=== PATIENT | female | born 1935 | race Two or more races ===

== ENCOUNTER 2021-05-07 18:48 | Inpatient (IN) | payer OTHER ==
[~2021-05-07] VITALS: Ht 157.5 cm; Wt 52.6 kg
[~2021-05-07 18:48] MED LIST: ALPR0.5T8 PO; BRIM5DRO2 EACHEYE; LEVO50TA8 PO; MELO-107 PO; TRAV2.5D2 EACHEYE
--- NOTE | 2021-05-07 19:00 | NUR ---
TO ER BED 1, C/O HEAD AND CHEST PRESSURE SINCE 163 TODAY, DENIES CHEST PAIN OR SOB, BREATHING EVEN AND NON LABORED, CONNECTED TO MONITOR, AWAITING MD GUZMAN
--- NOTE | 2021-05-07 19:22 | NUR ---
SALINE LOCK ESTABLISHED AND BLOOD DRAWN
--- NOTE | 2021-05-07 19:23 | NUR ---
COVID SWAB DONE AND SENT TO LAB
--- NOTE | 2021-05-07 20:11 | NUR ---
YUDELKA DAUGHTER [phone] AND ROSA SON [phone] ASKED FOR UPDATES WHENEVER
[2021-05-07 20:46] LABS: BASOPHILS % (AUTO) 0.4 % (0.0-2.0); EOSINOPHILS % (AUTO) 1.7 % (0.0-6.0); HEMATOCRIT 34 % (33-45); HEMOGLOBIN 11.3 g/dL (11.5-14.8); LYMPHOCYTES # (AUTO) 2.4 K/uL (0.8-4.8); LYMPHOCYTES % (AUTO) 44.1 % (20.0-44.0); MEAN CORPUSCULAR HGB CONC 33 g/dl (31.0-36.0); MEAN CORPUSCULAR VOLUME 90 fL (82-100); MONOCYTES # (AUTO) 0.4 K/uL (0.1-1.30); MONOCYTES % (AUTO) 7.1 % (2.0-12.0); NEUTROPHILS # (AUTO) 2.5 K/uL (1.8-8.9); NEUTROPHILS % (AUTO) 46.7 % (43.0-81.0); PLATELET COUNT (AUTO) 155 K/uL (150-450); RED BLOOD CELL COUNT(AUTO) 3.79 MIL/uL (4.0-5.2); WHITE BLOOD COUNT (AUTO) 5.3 K/uL (4.3-11.0)
[2021-05-07 21:04] LABS: CALCIUM, SERUM 8.8 mg/dL (8.5-10.1); CARBON DIOXIDE 30 mmol/L (21-32); CHLORIDE 97 mmol/L (98-107); CREATININE 0.8 mg/dL (0.6-1.3); GLUCOSE 92 mg/dL (74-106); SODIUM SERUM 133 mmol/L (136-145); UREA NITROGEN, BLOOD 22 mg/dL (7-18)
[2021-05-07] MEDS ORDERED: IOHEXOL-350 100 ML VIAL IV ONE (21:22)
[2021-05-07] MEDS ORDERED: CT SWABBABLE VALVE TRANS SET 1 EA INFUS.SET MC ONE (21:22)
[2021-05-07] MEDS ORDERED: IV NS 0.9% 250 ML IV ONE (21:22)
[2021-05-07] MEDS ORDERED: HEPARIN INFUSION/D5W 500 ML IV ONE ×2 (21:58→22:00)
--- NOTE | 2021-05-07 22:09 | NUR ---
SPOKE WITH JACINTO SAINI PUSH BENCH OPERATOR HELPER FOR CLINICALS. WILL CALL BACK FOR PEER TO PEER
--- NOTE | 2021-05-07 22:41 | NUR ---
PT TAKEN TO CT VIA LIBRADO
--- NOTE | 2021-05-07 22:45 | NUR ---
HEPARIN INFUSION INITIATED VIA 18G LAC AT 810 UNITS/HR PER PROTOCOL. NO BOLUS ADMINSTERED PER MD ORDER. PT/PTT/INR WITHIN NORMAL LIMITS WITH NO S/S OF BLEEDING.
[2021-05-08] MEDS ORDERED: AMLO2.5T4 PO (00:22)
[2021-05-08] MEDS ORDERED: MAGNESIUM HYDROXIDE 30 ML UDC PO PRN (00:30)
[2021-05-08] MEDS ORDERED: ENOXAPARIN SODIUM 30 MG/0.3 ML DISP.SYRIN SQ SCH (00:30)
[2021-05-08] MEDS ORDERED: MAG HYDROX/AL HYDROX/SIMETH 30 ML UDC PO PRN (00:30)
[2021-05-08] MEDS ORDERED: Z GUARD REMEDY 4 OZ OINT TP PRN (00:30)
[2021-05-08] MEDS ORDERED: HYDROCODONE/APAP 5/325MG TABLET PO PRN (00:30)
[2021-05-08] MEDS ORDERED: MORPHINE SULFATE INJ 2 MG/ML DISP.SYRIN IV PRN (00:30)
[2021-05-08] MEDS ORDERED: TEMAZEPAM 15 MG CAPSULE PO PRN (00:30)
[2021-05-08] MEDS ORDERED: ONDANSETRON HCL/PF 4 MG/2 ML VIAL IVP PRN (00:30)
[2021-05-08] MEDS ORDERED: NITROGLYCERIN 0.4 MG/TAB BOTTLE SL PRN (00:30)
[2021-05-08] MEDS ORDERED: ACETAMINOPHEN 325 MG TABLET PO PRN (00:30)
--- NOTE | 2021-05-08 02:00 | NUR ---
0200 SPOKE WITH SHER SOTO TO CLARIFY HEPARIN DRIP ORDER, PER HIM DC HEPARIN DRIP, START PATIENT ON LOVENOX 1MG/KG SQ EVERY 12 HOURS, AND DC PREVIOUS LOVENOX ORDER . ORDERS NOTED.
--- NOTE | 2021-05-08 02:07 | NUR ---
CALLED FOR REPORT NURSE NOT AVAILABLE AND WILL CALL BACK
--- NOTE | 2021-05-08 02:15 | NUR ---
0216 PHARMACIST FROM [facility] CALLED AND VERIFIED ORDERS, INFORMED HER THAT SHER SOTO ORDERED TO DC HEPARIN DRIP AND TO CHANGE DOSAGE OF LOVENOX.
--- NOTE | 2021-05-08 02:39 | NUR ---
REPORT GIVEN TO CHERRY HUGHES
--- NOTE | 2021-05-08 02:40 | NUR ---
0240 REPORT RECEIVED FROM ELLEN FAGAN FOR TRANSFER OF CARE WITH QUESTIONS ANSWERED.
--- NOTE | 2021-05-08 02:52 | NUR ---
PT TRANSPORTED TO ROOM 103-T ON BOILERMAKER PER ACLS PROTOCOL WITHOUT INCIDENT. ALL V/S STABLE AT TIME OF TRANSFER.
[2021-05-08 03:00] VITALS: BP 124/65
[2021-05-08] MEDS ORDERED: ENOXAPARIN SODIUM 60 MG/0.6 ML DISP.SYRIN SQ ONE (03:00)
--- NOTE | 2021-05-08 03:00 | NUR ---
0300 RECEIVED FROM ER 85 YEAR OLD FEMALE VIA Libretto WITH DIAGNOSIS OF CHEST PAIN. AAOX4. MAINLY BRAZILIAN SPEAKING, UNDERSTANDS SOME CZECH. ON ROOM AIR WITH NO C/O SHORTNESS OF BREATH OR DIFFICULTY BREATHING. ABLE OT AMBULATE WITH ASSIST. ADMISSION CARE DONE, SKIN ASSESSED, NO BREAKDOWN NOTED. BILATERAL AC IV SITES INTACT AND PATENT. VITAL SIGNS TAKEN ACCORDINGLY. DENIES CHEST PAIN WHEN ASKED. ALL NEEDS ATTENDED. CALL LIGHT PLACED WITHIN REACH AND INSTRUCTED TO CALL FOR ASSISTANCE.
--- NOTE | 2021-05-08 03:15 | NUR ---
RN NOTES: PER PHARMACIST PAUL, IT IS OKAY TO GIVE LOVENOX BECAUSE IT IS THERAPEUTIC DOSE. WILL CONTINUE TO MONITOR
[2021-05-08 04:00] VITALS: BP 124/65
--- NOTE | 2021-05-08 06:31 | NUR ---
RN CLOSING NOTES: PT IN BED ALERT, AWAKE, ORIENTED X4 AND VERBALLY RESPONSIVE. ON ROOM AIR AND O2 SAT 100%. NO SOB, BREATHING EVEN AND UNLABORED. BILATERAL AC IV ACCESS INTACT AND PATENT. NO S/S OF INFILTRATIONS. NO C/O PAIN OR DISCOMFORT. NO ACUTE DISTRESS. DUE MED GIVEN ORDER. ALL SAFETY MEASURE IN PLACE. BED ALARM ON, BED IN LOW POSITION AND LOCKED. PLACE CALL LIGHT WITH IN REACH. SON IN BEDSIDE. WILL ENDORSE TO QUAN=REGULO SHIFT NURSE.
[2021-05-08] MEDS: PANTOPRAZOLE 40 MG TABLET.DR PO SCH (07:08)
[2021-05-08] MEDS: LEVOTHYROXINE SODIUM 50 MCG TABLET PO SCH (07:09)
--- NOTE | 2021-05-08 07:21 | NUR ---
PLASTIC CNC MACHINE OPERATOR NOTE RECEIVED PATIENT ON BED ALERT AND ORIENTED, NO SIGNS AND SYMPTOMS OF DISTRESS. ON ROOM AIR WITH EQUAL AND UNLABORED BREATHING, TOLERATED WELL. WITH IV ACCESS ON THE LAC G18 AND RAC G 20, ON SALINE LOCK, PATENT AND INTACT. ON MODERATE TO HIGH BACK REST. ON NORMAL BODY ALIGNMENT. SAFETY MEASURES ENSURED WITH BED ON LOWEST LOCKED POSITION, SIDERAILS RAISED AND CALL LIGHT WITHIN REACH AT ALL TIMES. WILL CONTINUE TO MONITOR PATIENT.
[2021-05-08 08:00] VITALS: BP 114/62
[2021-05-08] MEDS: ASPIRIN 81 MG TAB.CHEW PO SCH (09:06)
[2021-05-08] MEDS: AMLODIPINE BESYLATE 2.5 MG TABLET PO SCH (09:07)
[2021-05-08 12:00] VITALS: BP 100/50
[2021-05-08 16:00] VITALS: BP 107/64
[2021-05-08] MEDS ORDERED: ENOXAPARIN SODIUM 60 MG/0.6 ML DISP.SYRIN SQ SCH (16:00)
[2021-05-08] MEDS: METOPROLOL TARTRATE 25 MG TABLET PO SCH ×2 (17:37→21:00)
--- NOTE | 2021-05-08 19:10 | NUR ---
COMPUTER NUMERICAL CONTROL GRINDER NOTE PATIENT ON BED ALERT AND ORIENTED, NO SIGNS AND SYMPTOMS OF DISTRESS. ON ROOM AIR WITH EQUAL AND UNLABORED BREATHING, TOLERATED WELL. WITH IV ACCESS ON THE LAC G18 AND RAC G 20, ON SALINE LOCK, PATENT AND INTACT. ON MODERATE TO HIGH BACK REST. ON NORMAL BODY ALIGNMENT. SAFETY MEASURES ENSURED WITH BED ON LOWEST LOCKED POSITION, SIDERAILS RAISED AND CALL LIGHT WITHIN REACH AT ALL TIMES. PATIENT FOR PROCEDURE TOMORROW. CONSENT SECURED AND ATTACHED TO CHART. IN STABLE CONDITION. SR 60'S TO 70'S. WILL ENDORSE PATIENT FOR CONTINUITY OF CARE.
--- NOTE | 2021-05-08 19:43 | NUR ---
RADIO INTERFERENCE TROUBLE SHOOTER OPENING RECIVED PATIENT AT THIS TIME, DAUGHTER AT BEDSIDE. PATIENT IS A/OX4. NOT EXHIBITING SOB OR ANY S/S OF APPARENT DISTRESS ON ROOM AIR. DENIES CHEST PAIN NOR HEADACHE AT THIS TIME. TELE MONITOR READING SR 78 BPM. PATIENT HAS L.AC G18 AND R.AC 20G NO FLUIDS RUNNING AT THIS TIME. NEEDS ATTENDED AT THE MOMENT. SAFETY IN PLACE. WILL CONTINUE WITH PLAN OF CARE FOR PATIENT.
[2021-05-08 20:00] VITALS: BP 101/49
[2021-05-09] VITALS: BP 98/57
[2021-05-09 04:00] VITALS: BP 104/62
[2021-05-09 06:39] LABS: BASOPHILS % (AUTO) 0.3 % (0.0-2.0); EOSINOPHILS % (AUTO) 1.6 % (0.0-6.0); HEMATOCRIT 34 % (33-45); HEMOGLOBIN 11.4 g/dL (11.5-14.8); LYMPHOCYTES % (AUTO) 43.3 % (20.0-44.0); MEAN CORPUSCULAR HGB CONC 34 g/dl (31.0-36.0); MEAN CORPUSCULAR VOLUME 90 fL (82-100); MONOCYTES # (AUTO) 0.4 K/uL (0.1-1.30); MONOCYTES % (AUTO) 8.5 % (2.0-12.0); NEUTROPHILS # (AUTO) 2.1 K/uL (1.8-8.9); NEUTROPHILS % (AUTO) 46.3 % (43.0-81.0); PLATELET COUNT (AUTO) 149 K/uL (150-450); RED BLOOD CELL COUNT(AUTO) 3.76 MIL/uL (4.0-5.2); WHITE BLOOD COUNT (AUTO) 4.5 K/uL (4.3-11.0)
--- NOTE | 2021-05-09 06:47 | NUR ---
FOOD SERVICE HELPER CLOSING NOTE PATIENT IN BED WITH EYES CLOSED, EASY TO AROUSE, A/OX4. ABLE TO AMBULATE WITH STEADY GAIT IN THE REST ROOM. NOT EXHIBITING S/S OF DISTRESS ON ROOM AIR. DENIED PAIN THROUGHOUT SHIFT. TELE MONITOR READ SR THROUGHOUT SHIFT. KEPT NPO FOR THE NIGHT FOR THE SCHEDULED CT ANGIO-- CONSENT AND CHECKLIST SIGNED AND CHARTED. INTACT SKIN. NO FLUIDS RUNNING AT THIS TIME REPORTED NO BM. ALL NEEDS ATTENDED. LOPRESSOR HELD LAST NIGHT BECAUSE OF LOW BP. WILL ENDORSE TO MORNING SHIFT RN FOR CONTINUATION OF CARE.
[2021-05-09] MEDS: LEVOTHYROXINE SODIUM 50 MCG TABLET PO SCH (07:02)
[2021-05-09] MEDS: PANTOPRAZOLE 40 MG TABLET.DR PO SCH (07:02)
[2021-05-09 07:06] LABS: CALCIUM, SERUM 8.2 mg/dL (8.5-10.1); CREATININE 0.8 mg/dL (0.6-1.3); MAGNESIUM 2.2 mg/dL (1.8-2.4); PHOSPHORUS 4.3 mg/dL (2.5-4.9); POTASSIUM 3.8 mmol/L (3.5-5.1)
--- NOTE | 2021-05-09 07:30 | NUR ---
RN OPENING NOTE PATIENT IN BED WITH EYES CLOSED, EASY TO AROUSE, A/OX4. NOT EXHIBITING S/S OF DISTRESS ON ROOM AIR. PATIENT HAS L/R AC PIV INTACT AND PATENT WITH NO FLUIDS RUNNING. PATIENT IS AMB WITH ASSIST PER HOEING ROW BOSS RN. PATIENT IS SHOWING NO S/SX OF PAIN OR DISTRESS. ALL SAFETY MEASURES NOTED AND ACCOUNTED FOR. BED IN LOWEST POSITION WITH WHEELS LOCKED. CALL LIGHT WITHIN REACH. WILL CONTINUE TO MONITOR.
[2021-05-09 08:00] VITALS: BP 110/64
[2021-05-09] MEDS: ASPIRIN 81 MG TAB.CHEW PO SCH (08:43)
[2021-05-09] MEDS: AMLODIPINE BESYLATE 2.5 MG TABLET PO SCH (08:44)
[2021-05-09] MEDS: METOPROLOL TARTRATE 25 MG TABLET PO SCH (08:44)
[2021-05-09] MEDS ORDERED: METOPROLOL TARTRATE INJ 5 MG/5 ML AMPUL ONE (11:18)
[2021-05-09] MEDS ORDERED: CT SWABBABLE VALVE TRANS SET 1 EA INFUS.SET MC ONE (11:18)
[2021-05-09] MEDS ORDERED: NITROGLYCERIN 0.4 MG/TAB BOTTLE ONE (11:18)
[2021-05-09] MEDS ORDERED: IOHEXOL-350 100 ML VIAL IV ONE (11:18)
[2021-05-09] MEDS ORDERED: IV NS 0.9% 250 ML IV ONE (11:19)
[2021-05-09 12:00] VITALS: BP 114/66
[2021-05-09 12:44] LABS: THYROID STIMULATING HORMONE 4.529 uIU/mL (0.358-3.74)
[2021-05-09] MEDS ORDERED: METO25TA20 PO (15:44)
[2021-05-09] MEDS ORDERED: ASPI-1169 PO (15:44)
[2021-05-09 16:00] VITALS: BP 100/56
--- NOTE | 2021-05-09 17:30 | NUR ---
DIRECTOR OF PATIENT CARE NOTE PATIENT DISCHARGED PER DR MARTINEZ. PATIENT REMAINED STABLE THROUGHOUT SHIFT AND WAS STABLE AT TIME OF DISCHARGE. PATIENT R/L PIV REMOVED FULLY INTACT. PATIENT AND DAUGHTER EXPLAINED NEED FOR F/U WITH PCP PER DR HUERTA/ PAT/DAUGHTER BOTH VERBALLY CONFIRMED UNDERSTANDING OF MD ORDERS.PATIENT HAD ALL BELONGINGS WITH HER UPON DISCHARGED. PATIENT DISCHARGED HOME AND LEFT WITH DAUGHTER WITHOUT ANY INCIDENT.
== END 2021-05-09 17:43 | disposition home or self-care (01) | DRG 206 ==
LOC: ER 18:58 → TELE1 05-08 01:55
PROVIDERS: ADMIT Nurse Practitioner Acute Care; ATTEND Student in an Organized Health Care Education/Training Program
DX: M94.0 Chondrocostal junction syndrome [Tietze] (principal); E87.1 Hypo-osmolality and hyponatremia; I10 Essential (primary) hypertension; Z20.822 Contact with and (suspected) exposure to COVID-19; E03.9 Hypothyroidism, unspecified; H40.9 Unspecified glaucoma; M19.90 Unspecified osteoarthritis, unspecified site; Z98.890 Other specified postprocedural states; Z88.8 Allergy status to other drugs, medicaments and biological substances; Z91.041 Radiographic dye allergy status; Z79.899 Other long term (current) drug therapy; E86.0 Dehydration; F41.9 Anxiety disorder, unspecified; Z79.890 Hormone replacement therapy
CPT/HCPCS: 36415; 71045-TC; 75574; 80048-TC; 83735-TC; 84100-TC; 84443-TC; 84484-TC; 85025-TC; 85378-TC; 85730-TC; 87081-TC; 93307-TC; C9803; G0378; J1644; J1650; J3490; J7050; Q9967

== ENCOUNTER 2023-06-05 14:42 | Emergency (ER) | payer OTHER ==
[~2023-06-05] VITALS: Ht 149.9 cm; Wt 53.1 kg
[~2023-06-05 14:42] MED LIST changes: -ALPR0.5T8 PO; +AMLO2.5T4 PO; +ASPI-1169 PO; -BRIM5DRO2 EACHEYE; -MELO-107 PO; +METO25TA20 PO; -TRAV2.5D2 EACHEYE
[2023-06-05] MEDS ORDERED: LIDOCAINE 1%-EPI 1:100,000 20 ML VIAL ONE (14:55)
[2023-06-05] MEDS ORDERED: GELATIN SPONGE,ABSORBABLE 1 EA SPONGE TP ONE (15:00)
[2023-06-05] MEDS: LIDOCAINE 1% INJ 50 ML MDV IJ ONE (15:04)
[2023-06-05] MEDS: BACI/NEOM/POLY B OINT PKT 1 UDPKT PACKET TP ONE (15:04)
[2023-06-05] MEDS ORDERED: TDAP [DIPH/PERTUSSIS/TET] 0.5 ML VIAL IM ONE (15:15)
[2023-06-05] MEDS: TDAP [DIPH/PERTUSSIS/TET] 0.5 ML VIAL IM ONE (15:20)
[2023-06-05 17:26] VITALS: BP 136/81; TEMP 97.6; O2SAT 99
== END 2023-06-05 17:27 | disposition home or self-care (01) ==
LOC: ER 15:04
DX: S01.01XA Laceration without foreign body of scalp, initial encounter (principal); S09.90XA Unspecified injury of head, initial encounter; I10 Essential (primary) hypertension; M19.90 Unspecified osteoarthritis, unspecified site; F32.A Depression, unspecified; E03.9 Hypothyroidism, unspecified; Z88.6 Allergy status to analgesic agent; Z88.8 Allergy status to other drugs, medicaments and biological substances; Z79.899 Other long term (current) drug therapy; W01.0XXA Fall on same level from slipping, tripping and stumbling without subsequent striking against object, initial encounter; Y93.89 Activity, other specified; Y92.89 Other specified places as the place of occurrence of the external cause; Y99.8 Other external cause status
CPT/HCPCS: 12001; 70450; 90471; 90715; 93005; 99285; A6403; J3490

== ENCOUNTER 2023-06-07 21:53 | Inpatient (IN) | payer OTHER, MEDICARE ==
[~2023-06-07] VITALS: Ht 160 cm; Wt 60.8 kg
[2023-06-07 22:53] LABS: BASOPHILS % (AUTO) 0.2 % (0.0-2.0); EOSINOPHILS # (AUTO) 0.1 K/uL (0.0-0.7); EOSINOPHILS % (AUTO) 1.2 % (0.0-6.0); HEMATOCRIT 30 % (33-45); HEMOGLOBIN 10.3 g/dL (11.5-14.8); LYMPHOCYTES # (AUTO) 1.6 K/uL (0.8-4.8); LYMPHOCYTES % (AUTO) 24.7 % (20.0-44.0); MEAN CORPUSCULAR HEMOGLOBIN 30 PG (26.0-33.0); MEAN CORPUSCULAR HGB CONC 34 g/dl (31.0-36.0); MEAN CORPUSCULAR VOLUME 88 fL (82-100); MONOCYTES # (AUTO) 0.6 K/uL (0.1-1.30); MONOCYTES % (AUTO) 9.6 % (2.0-12.0); NEUTROPHILS # (AUTO) 4.1 K/uL (1.8-8.9); NEUTROPHILS % (AUTO) 64.3 % (43.0-81.0); PLATELET COUNT (AUTO) 140 K/uL (150-450); RED BLOOD CELL COUNT(AUTO) 3.43 MIL/uL (4.0-5.2); WHITE BLOOD COUNT (AUTO) 6.3 K/uL (4.3-11.0)
[2023-06-07 23:07] LABS: ALANINE AMINOTRANSFERASE 34 U/L (12-78); ALBUMIN 3.1 g/dL (3.4-5.0); ALCOHOL, BLOOD < 3 mg/dL (0-10); ALKALINE PHOSPHATASE 102 U/L (46-116); ASPARTATE AMINOTRANSFERASE 28 U/L (15-37); BILIRUBIN,DIRECT 0.2 mg/dL (0.0-0.2); BILIRUBIN,TOTAL 0.8 mg/dL (0.2-1.0); CALCIUM, SERUM 8.1 mg/dL (8.5-10.1); CARBON DIOXIDE 26 mmol/L (21-32); CHLORIDE 91 mmol/L (98-107); CREATININE 0.6 mg/dL (0.6-1.3); GLUCOSE 94 mg/dL (74-106); POTASSIUM 4.2 mmol/L (3.5-5.1); SODIUM SERUM 121 mmol/L (136-145); TOTAL PROTEIN, SERUM 6.8 g/dL (6.4-8.2); UREA NITROGEN, BLOOD 17 mg/dL (7-18)
[2023-06-07 23:11] LABS: ACETAMINOPHEN <10 ug/ml (10-30); SALICYLATE < 2.3 mg/dL (2.8-20.0)
[2023-06-07 23:15] LABS: ADD URINE CULTURE YES; APPEARANCE,URINE SLIGHTLY CLOUDY (CLEAR); BACTERIA,URINE Rare /HPF (None Seen); BILIRUBIN,URINE NEGATIVE (NEGATIVE); BLOOD, URINE TRACE-INTA Ery/uL (NEGATIVE); COLOR,URINE YELLOW (YELLOW); KETONES,URINE NEGATIVE (NEGATIVE); LEUKOCYTE ESTERASE ,URINE 1+ (NEGATIVE); NITRITE, URINE NEGATIVE (NEGATIVE); PROTEIN,URINE NEGATIVE (NEGATIVE); SQUAMOUS EPITHELIAL CELL,UR Few /HPF (None Seen); UGLUCOSE NEGATIVE (NEGATIVE)
[2023-06-07 23:24] LABS: PARTIAL THROMBOPLASTIN TIME 26.6 SEC (24.3-34.3); PROTHROMBIN TIME 10.6 SECS (9.2-11.1)
[2023-06-07 23:25] LABS: AMPHETAMINE, URINE NEGATIVE (NEGATIVE); BARBITURATE, URINE NEGATIVE (NEGATIVE); BENZODIAZEPINE, URINE NEGATIVE (NEGATIVE); COCCAINE, URINE NEGATIVE (NEGATIVE); OPIATE, URINE NEGATIVE (NEGATIVE); PHENCYCLIDINE SCREEN,URINE NEGATIVE (NEGATIVE)
[2023-06-07 23:28] LABS: CANNABINOID, URINE POSITIVE (NEGATIVE)
[2023-06-07] MEDS: CEFTRIAXONE 1 G in IV D5W 50 ML IV ONE (23:36)
[2023-06-07] MEDS ORDERED: CEFTRIAXONE 1GM BAG (ER ONLY) 50 ML IV ONE (23:36)
[2023-06-08] MEDS ORDERED: MORPHINE SULFATE INJ 2 MG/ML DISP.SYRIN IV PRN (00:30)
[2023-06-08] MEDS ORDERED: hydrALAZINE HCL IV 20 MG VIAL IV PRN (00:30)
[2023-06-08] MEDS ORDERED: ONDANSETRON HCL/PF 4 MG/2 ML VIAL IVP PRN (00:30)
[2023-06-08] MEDS: ACETAMINOPHEN 325 MG TABLET PO PRN (02:04)
[2023-06-08] MEDS: IV NS 0.9% 1,000 ML IV SCH (02:05)
[2023-06-08 02:44] VITALS: BP 138/73; TEMP 97; O2SAT 99
[2023-06-08 04:00] VITALS: BP 128/69; TEMP 97.9; O2SAT 99
[2023-06-08 07:00] VITALS: BP 135/63; TEMP 97.7; O2SAT 100
[2023-06-08] MEDS: ASPIRIN 81 MG TAB.CHEW PO SCH (08:21)
[2023-06-08] MEDS: POLYETHYLENE GLYCOL 3350 17 GM POWD.PACK PO SCH (08:21)
[2023-06-08] MEDS: DOCUSATE SODIUM LIQ 100 MG/10 ML UDC PO SCH (08:21)
[2023-06-08] MEDS: LEVOTHYROXINE SODIUM 50 MCG TABLET PO SCH (08:21)
[2023-06-08] MEDS: METOPROLOL TARTRATE 25 MG TABLET PO SCH (08:22)
[2023-06-08] MEDS: AMLODIPINE BESYLATE 2.5 MG TABLET PO SCH (08:22)
[2023-06-08] MEDS: HEPARIN SODIUM, PORCINE 5000 UNITS/1 ML VIAL SQ SCH (08:23)
[2023-06-08] MEDS ORDERED: CEFTRIAXONE 1 G in IV D5W 50 ML IV SCH (09:00)
[2023-06-08] MEDS ORDERED: NEOM28.37 TP (09:19)
[2023-06-08] MEDS ORDERED: FLUO10TA PO (09:19)
[2023-06-08] MEDS ORDERED: TIMO5DRO35 EACHEYE (09:19)
[2023-06-08] MEDS ORDERED: LATA2.5D15 EACHEYE (09:19)
[2023-06-08 10:12] LABS: CALCIUM, SERUM 8.1 mg/dL (8.5-10.1); CREATININE 0.6 mg/dL (0.6-1.3); POTASSIUM 3.8 mmol/L (3.5-5.1)
[2023-06-08 11:13] LABS: MAGNESIUM 1.6 mg/dL (1.8-2.4); PHOSPHORUS 2.8 mg/dL (2.5-4.9)
[2023-06-08 11:33] LABS: THYROID STIMULATING HORMONE 2.582 uIU/mL (0.358-3.74)
[2023-06-08 12:00] VITALS: BP 133/65; TEMP 97.5; O2SAT 99
[2023-06-08 14:08] LABS: CREATININE 0.6 mg/dL (0.6-1.3); POTASSIUM 3.6 mmol/L (3.5-5.1)
[2023-06-08 16:00] VITALS: BP 129/74; TEMP 97.6; O2SAT 98
[2023-06-08] MEDS: IV NS 0.9% 1,000 ML IV PRN (17:15)
[2023-06-08] MEDS: SODIUM CHLORIDE 1000 MG TABLET PO SCH (17:37)
[2023-06-08 20:00] VITALS: BP 120/53; TEMP 98.2; O2SAT 99
[2023-06-08] MEDS: CEFTRIAXONE 1 G in IV D5W 50 ML IV SCH (23:13)
[2023-06-09] VITALS: BP 122/58; TEMP 97.7; O2SAT 97
[2023-06-09 04:00] VITALS: BP 126/57; TEMP 97.7; O2SAT 99
[2023-06-09 04:38] VITALS: BP 125/52; TEMP 98.1; O2SAT 100
[2023-06-09 07:12] LABS: BASOPHILS % (AUTO) 0.4 % (0.0-2.0); EOSINOPHILS # (AUTO) 0.1 K/uL (0.0-0.7); EOSINOPHILS % (AUTO) 1.1 % (0.0-6.0); HEMATOCRIT 32 % (33-45); HEMOGLOBIN 10.8 g/dL (11.5-14.8); LYMPHOCYTES # (AUTO) 1.4 K/uL (0.8-4.8); LYMPHOCYTES % (AUTO) 28.2 % (20.0-44.0); MEAN CORPUSCULAR HEMOGLOBIN 30 PG (26.0-33.0); MEAN CORPUSCULAR HGB CONC 34 g/dl (31.0-36.0); MEAN CORPUSCULAR VOLUME 89 fL (82-100); MONOCYTES # (AUTO) 0.5 K/uL (0.1-1.30); MONOCYTES % (AUTO) 10.9 % (2.0-12.0); NEUTROPHILS # (AUTO) 2.9 K/uL (1.8-8.9); NEUTROPHILS % (AUTO) 59.4 % (43.0-81.0); PLATELET COUNT (AUTO) 159 K/uL (150-450); RED CELL DISTRIBUTION WIDTH 13.9 % (11.5-15.0); WHITE BLOOD COUNT (AUTO) 4.8 K/uL (4.3-11.0)
[2023-06-09 08:00] VITALS: BP_SYST 131; BP_SYST 150; BP_DIAS 56; BP_DIAS 73; TEMP 98.1; TEMP 98.8; O2SAT 100
[2023-06-09 08:20] LABS: ALBUMIN 3.1 g/dL (3.4-5.0); BILIRUBIN,TOTAL 0.9 mg/dL (0.2-1.0); CALCIUM, SERUM 8.1 mg/dL (8.5-10.1); CREATININE 0.6 mg/dL (0.6-1.3); PHOSPHORUS 3.1 mg/dL (2.5-4.9); POTASSIUM 3.9 mmol/L (3.5-5.1)
[2023-06-09] MEDS: Fluoxetine 10 mg capsule PO SCH (09:42)
[2023-06-09] MEDS: LATANOPROST EYE DROP 0.005% 2.5 ML BOTTLE EACHEYE SCH (09:56)
[2023-06-09] MEDS: TIMOLOL 0.5% SOLN OPHTH 5 ML BOTTLE EACHEYE SCH (09:57)
[2023-06-09 16:00] VITALS: BP 116/57; TEMP 98.6; O2SAT 100
[2023-06-09 20:00] VITALS: BP 183/77; TEMP 98.1; TEMP 98.4; O2SAT 97
[2023-06-09 20:39] LABS: URINE SODIUM, RANDOM 99 mmol/l (40-220)
[2023-06-10 07:02] LABS: BASOPHILS % (AUTO) 0.5 % (0.0-2.0); EOSINOPHILS # (AUTO) 0.1 K/uL (0.0-0.7); EOSINOPHILS % (AUTO) 1.2 % (0.0-6.0); HEMATOCRIT 31 % (33-45); HEMOGLOBIN 10.4 g/dL (11.5-14.8); LYMPHOCYTES # (AUTO) 1.6 K/uL (0.8-4.8); LYMPHOCYTES % (AUTO) 33.7 % (20.0-44.0); MEAN CORPUSCULAR HEMOGLOBIN 30 PG (26.0-33.0); MEAN CORPUSCULAR HGB CONC 34 g/dl (31.0-36.0); MEAN CORPUSCULAR VOLUME 88 fL (82-100); MONOCYTES # (AUTO) 0.5 K/uL (0.1-1.30); MONOCYTES % (AUTO) 11.5 % (2.0-12.0); NEUTROPHILS # (AUTO) 2.5 K/uL (1.8-8.9); NEUTROPHILS % (AUTO) 53.1 % (43.0-81.0); PLATELET COUNT (AUTO) 169 K/uL (150-450); RED BLOOD CELL COUNT(AUTO) 3.47 MIL/uL (4.0-5.2); RED CELL DISTRIBUTION WIDTH 14.1 % (11.5-15.0); WHITE BLOOD COUNT (AUTO) 4.7 K/uL (4.3-11.0)
[2023-06-10 07:06] LABS: BILIRUBIN,TOTAL 0.7 mg/dL (0.2-1.0); CALCIUM, SERUM 8.1 mg/dL (8.5-10.1); CREATININE 0.7 mg/dL (0.6-1.3); MAGNESIUM 1.8 mg/dL (1.8-2.4); POTASSIUM 3.5 mmol/L (3.5-5.1); TOTAL PROTEIN, SERUM 6.6 g/dL (6.4-8.2)
[2023-06-10 08:00] VITALS: BP 150/66; TEMP 98.1; O2SAT 98
[2023-06-10 16:00] VITALS: BP 132/60; TEMP 98.6; O2SAT 99
[2023-06-10 20:00] VITALS: BP 119/58; TEMP 99; O2SAT 99
[2023-06-11 11:53] LABS: BASOPHILS % (AUTO) 0.3 % (0.0-2.0); EOSINOPHILS # (AUTO) 0.1 K/uL (0.0-0.7); EOSINOPHILS % (AUTO) 0.9 % (0.0-6.0); HEMATOCRIT 30 % (33-45); HEMOGLOBIN 10.2 g/dL (11.5-14.8); LYMPHOCYTES # (AUTO) 1.6 K/uL (0.8-4.8); MEAN CORPUSCULAR HEMOGLOBIN 30 PG (26.0-33.0); MEAN CORPUSCULAR HGB CONC 34 g/dl (31.0-36.0); MEAN CORPUSCULAR VOLUME 88 fL (82-100); MONOCYTES # (AUTO) 0.7 K/uL (0.1-1.30); MONOCYTES % (AUTO) 12.9 % (2.0-12.0); NEUTROPHILS # (AUTO) 3.4 K/uL (1.8-8.9); NEUTROPHILS % (AUTO) 58.9 % (43.0-81.0); PLATELET COUNT (AUTO) 186 K/uL (150-450); RED BLOOD CELL COUNT(AUTO) 3.44 MIL/uL (4.0-5.2); RED CELL DISTRIBUTION WIDTH 13.9 % (11.5-15.0); WHITE BLOOD COUNT (AUTO) 5.8 K/uL (4.3-11.0)
[2023-06-11 12:04] LABS: ALANINE AMINOTRANSFERASE 33 U/L (12-78); ALBUMIN 3.2 g/dL (3.4-5.0); ALKALINE PHOSPHATASE 75 U/L (46-116); ASPARTATE AMINOTRANSFERASE 36 U/L (15-37); BILIRUBIN,TOTAL 0.6 mg/dL (0.2-1.0); CALCIUM, SERUM 7.9 mg/dL (8.5-10.1); CARBON DIOXIDE 25 mmol/L (21-32); CHLORIDE 94 mmol/L (98-107); CREATININE 0.6 mg/dL (0.6-1.3); GLUCOSE 71 mg/dL (74-106); POTASSIUM 3.1 mmol/L (3.5-5.1); SODIUM SERUM 127 mmol/L (136-145); TOTAL PROTEIN, SERUM 6.8 g/dL (6.4-8.2); UREA NITROGEN, BLOOD 12 mg/dL (7-18)
[2023-06-11] MEDS: POTASSIUM CHLORIDE 20 MEQ TAB.PRT.SR PO SCH (13:48)
[2023-06-11 18:30] LABS: OSMOLALITY,URINE 505 mOS/kg (340-1090)
[2023-06-11 20:07] VITALS: BP 100/56; TEMP 98.8; O2SAT 98
[2023-06-12 07:10] LABS: CALCIUM, SERUM 8.4 mg/dL (8.5-10.1); CREATININE 0.7 mg/dL (0.6-1.3); POTASSIUM 4.1 mmol/L (3.5-5.1)
[2023-06-12 08:00] VITALS: BP 146/67; TEMP 98.4; O2SAT 98
[2023-06-12] MEDS ORDERED: SULF1TAB48 PO (10:38)
[2023-06-12] MEDS ORDERED: SODI100037 PO (10:38)
[2023-06-12] MEDS ORDERED: FLUO10CA29 PO (10:38)
[2023-06-12 16:00] VITALS: BP 105/55; TEMP 98.6; O2SAT 96
[2023-06-12 20:00] VITALS: BP 102/52; TEMP 99.5; O2SAT 98
[2023-06-13 08:00] VITALS: BP 142/70; TEMP 98.6; O2SAT 98
[2023-06-13 09:14] VITALS: BP 143/70
[2023-06-13 09:38] LABS: BASOPHILS % (AUTO) 0.5 % (0.0-2.0); EOSINOPHILS # (AUTO) 0.1 K/uL (0.0-0.7); EOSINOPHILS % (AUTO) 1.2 % (0.0-6.0); HEMATOCRIT 35 % (33-45); HEMOGLOBIN 11.7 g/dL (11.5-14.8); LYMPHOCYTES # (AUTO) 1.2 K/uL (0.8-4.8); MEAN CORPUSCULAR HEMOGLOBIN 30 PG (26.0-33.0); MEAN CORPUSCULAR HGB CONC 34 g/dl (31.0-36.0); MEAN CORPUSCULAR VOLUME 89 fL (82-100); MONOCYTES # (AUTO) 0.3 K/uL (0.1-1.30); MONOCYTES % (AUTO) 6.7 % (2.0-12.0); NEUTROPHILS # (AUTO) 2.6 K/uL (1.8-8.9); NEUTROPHILS % (AUTO) 62.6 % (43.0-81.0); PLATELET COUNT (AUTO) 216 K/uL (150-450); RED BLOOD CELL COUNT(AUTO) 3.89 MIL/uL (4.0-5.2); RED CELL DISTRIBUTION WIDTH 14.2 % (11.5-15.0); WHITE BLOOD COUNT (AUTO) 4.2 K/uL (4.3-11.0)
[2023-06-13 09:56] LABS: ALANINE AMINOTRANSFERASE 63 U/L (12-78); ALBUMIN 3.7 g/dL (3.4-5.0); ALKALINE PHOSPHATASE 88 U/L (46-116); ASPARTATE AMINOTRANSFERASE 61 U/L (15-37); BILIRUBIN,TOTAL 0.7 mg/dL (0.2-1.0); CALCIUM, SERUM 8.5 mg/dL (8.5-10.1); CARBON DIOXIDE 26 mmol/L (21-32); CHLORIDE 90 mmol/L (98-107); CREATININE 0.7 mg/dL (0.6-1.3); GLUCOSE 137 mg/dL (74-106); MAGNESIUM 1.9 mg/dL (1.8-2.4); PHOSPHORUS 3.8 mg/dL (2.5-4.9); POTASSIUM 3.4 mmol/L (3.5-5.1); SODIUM SERUM 127 mmol/L (136-145); UREA NITROGEN, BLOOD 13 mg/dL (7-18)
[2023-06-13] MEDS: POTASSIUM CHLORIDE 20 MEQ TAB.PRT.SR PO ONE (12:49)
[2023-06-13] MEDS ORDERED: POTASSIUM CHLORIDE 20 MEQ TAB.PRT.SR PO ONE (13:00)
== END 2023-06-13 14:45 | DRG 640 ==
LOC: ER 21:55 → TELE 06-08 00:58 → MED 06-09 09:09
PROVIDERS: ADMIT Nurse Practitioner Acute Care; ATTEND Internal Medicine
DX: E87.1 Hypo-osmolality and hyponatremia (principal); G93.41 Metabolic encephalopathy; N39.0 Urinary tract infection, site not specified; F03.93 Unspecified dementia, unspecified severity, with mood disturbance; S01.91XA Laceration without foreign body of unspecified part of head, initial encounter; W19.XXXA Unspecified fall, initial encounter; I10 Essential (primary) hypertension; M19.90 Unspecified osteoarthritis, unspecified site; F32.A Depression, unspecified; Z98.890 Other specified postprocedural states; Z88.8 Allergy status to other drugs, medicaments and biological substances; Z88.6 Allergy status to analgesic agent; Z91.041 Radiographic dye allergy status; Z79.82 Long term (current) use of aspirin; Z79.899 Other long term (current) drug therapy; Z79.890 Hormone replacement therapy; B96.89 Other specified bacterial agents as the cause of diseases classified elsewhere; D64.9 Anemia, unspecified; E03.9 Hypothyroidism, unspecified; E83.42 Hypomagnesemia; T43.225A Adverse effect of selective serotonin reuptake inhibitors, initial encounter; Y92.9 Unspecified place or not applicable; E86.9 Volume depletion, unspecified
CPT/HCPCS: 36415; 70450-TC; 71045-TC; 80048-TC; 80053-TC; 80076-TC; 81001; 82533; 82962-TC; 83735-TC; 83935-TC; 84100-TC; 84300-TC; 84443-TC; 84484-TC; 84550-TC; 85025-TC; 85730-TC; 87086-TC; 97110-TC; 97530-TC; 97535-TC; A4223; A6403; G0378; G0480; J0696; J1644; J7030; J7060

== ENCOUNTER 2023-10-17 16:15 | Emergency (ER) | payer MEDICARE, OTHER ==
[~2023-10-17] VITALS: Ht 160 cm; Wt 59.9 kg
[~2023-10-17 16:15] MED LIST changes: +FLUO10CA29 PO; +LATA2.5D15 EACHEYE; +NEOM28.37 TP; +SODI100037 PO; +SULF1TAB48 PO; +TIMO5DRO35 EACHEYE
[2023-10-17] MEDS ORDERED: ACET325T53 PO (17:22)
[2023-10-17] MEDS ORDERED: DOCU100C36 PO (17:22)
[2023-10-17] MEDS ORDERED: MAGN400O6 PO (17:22)
[2023-10-17] MEDS ORDERED: BISA10SU11 RC (17:22)
[2023-10-17] MEDS ORDERED: NA P133E RC (17:22)
[2023-10-17] MEDS ORDERED: CALC500T53 PO (17:22)
[2023-10-17] MEDS ORDERED: MULT-213 PO (17:22)
[2023-10-17] MEDS ORDERED: GUAI100S34 PO (17:22)
[2023-10-17] MEDS ORDERED: DIVA125T2 PO (17:22)
[2023-10-17] MEDS ORDERED: MELA5TAB PO (17:22)
[2023-10-17] MEDS ORDERED: SENN8.6T19 PO (17:22)
[2023-10-17 18:44] VITALS: BP 115/79; TEMP 98.2; O2SAT 98
== END 2023-10-17 18:46 | disposition home or self-care (01) ==
LOC: ER 16:18
DX: Z04.3 Encounter for examination and observation following other accident (principal); F03.90 Unspecified dementia, unspecified severity, without behavioral disturbance, psychotic disturbance, mood disturbance, and anxiety; I10 Essential (primary) hypertension; E03.9 Hypothyroidism, unspecified; Z86.79 Personal history of other diseases of the circulatory system; Z87.39 Personal history of other diseases of the musculoskeletal system and connective tissue; Z88.0 Allergy status to penicillin; Z88.8 Allergy status to other drugs, medicaments and biological substances; Z88.6 Allergy status to analgesic agent; Z91.011 Allergy to milk products; Z91.013 Allergy to seafood; W18.39XA Other fall on same level, initial encounter; Y93.89 Activity, other specified; Y92.89 Other specified places as the place of occurrence of the external cause; Y99.8 Other external cause status

== ENCOUNTER 2023-10-18 15:30 | Emergency (ER) | payer MEDICARE, OTHER ==
[~2023-10-18] VITALS: Ht 154.9 cm; Wt 54.4 kg
[~2023-10-18 15:30] MED LIST changes: +ACET325T53 PO; -ASPI-1169 PO; +BISA10SU11 RC; +CALC500T53 PO; +DIVA125T2 PO; +DOCU100C36 PO; +GUAI100S34 PO; +MAGN400O6 PO; +MELA5TAB PO; +MULT-213 PO; +NA P133E RC; -NEOM28.37 TP; +SENN8.6T19 PO; -SULF1TAB48 PO
[2023-10-18 15:41] VITALS: BP 92/50; O2SAT 98
== END 2023-10-18 17:47 | disposition home or self-care (01) ==
LOC: ER 15:33
DX: R51.9 Headache, unspecified (principal); F03.90 Unspecified dementia, unspecified severity, without behavioral disturbance, psychotic disturbance, mood disturbance, and anxiety; I10 Essential (primary) hypertension; Z86.79 Personal history of other diseases of the circulatory system; Z87.39 Personal history of other diseases of the musculoskeletal system and connective tissue; E03.9 Hypothyroidism, unspecified; Z88.0 Allergy status to penicillin; Z88.6 Allergy status to analgesic agent; Z91.040 Latex allergy status; Z88.8 Allergy status to other drugs, medicaments and biological substances; Z91.011 Allergy to milk products; Z91.013 Allergy to seafood; W18.39XA Other fall on same level, initial encounter; Y93.89 Activity, other specified; Y92.89 Other specified places as the place of occurrence of the external cause; Y99.8 Other external cause status
CPT/HCPCS: 70450-TC; 72125-TC; 72170-TC

== ENCOUNTER 2023-11-01 09:51 | Emergency (ER) | payer MEDICARE, OTHER ==
[~2023-11-01] VITALS: Ht 154.9 cm; Wt 55.3 kg
[2023-11-01 11:00] LABS: BASOPHILS % (AUTO) 0.4 % (0.0-2.0); EOSINOPHILS # (AUTO) 0.1 K/uL (0.0-0.7); EOSINOPHILS % (AUTO) 0.9 % (0.0-6.0); HEMATOCRIT 31 % (33-45); HEMOGLOBIN 10.2 g/dL (11.5-14.8); LYMPHOCYTES # (AUTO) 1.5 K/uL (0.8-4.8); LYMPHOCYTES % (AUTO) 23.9 % (20.0-44.0); MEAN CORPUSCULAR HEMOGLOBIN 30 PG (26.0-33.0); MEAN CORPUSCULAR HGB CONC 33 g/dl (31.0-36.0); MEAN CORPUSCULAR VOLUME 90 fL (82-100); MONOCYTES # (AUTO) 0.4 K/uL (0.1-1.30); MONOCYTES % (AUTO) 6.8 % (2.0-12.0); NEUTROPHILS # (AUTO) 4.2 K/uL (1.8-8.9); PLATELET COUNT (AUTO) 138 K/uL (150-450); RED BLOOD CELL COUNT(AUTO) 3.46 MIL/uL (4.0-5.2); RED CELL DISTRIBUTION WIDTH 16.6 % (11.5-15.0); WHITE BLOOD COUNT (AUTO) 6.2 K/uL (4.3-11.0)
[2023-11-01 11:14] LABS: CALCIUM, SERUM 8.8 mg/dL (8.5-10.1); CARBON DIOXIDE 26 mmol/L (21-32); CHLORIDE 101 mmol/L (98-107); CREATININE 0.7 mg/dL (0.6-1.3); GLUCOSE 84 mg/dL (74-106); POTASSIUM 4.1 mmol/L (3.5-5.1); SODIUM SERUM 135 mmol/L (136-145); UREA NITROGEN, BLOOD 22 mg/dL (7-18)
[2023-11-01 11:19] LABS: ALANINE AMINOTRANSFERASE 22 U/L (12-78); ALBUMIN 2.8 g/dL (3.4-5.0); ALKALINE PHOSPHATASE 63 U/L (46-116); ASPARTATE AMINOTRANSFERASE 19 U/L (15-37); BILIRUBIN,DIRECT 0.2 mg/dL (0.0-0.2); BILIRUBIN,TOTAL 0.7 mg/dL (0.2-1.0); TOTAL PROTEIN, SERUM 6.9 g/dL (6.4-8.2)
[2023-11-01 14:46] VITALS: BP 95/79; TEMP 98.6; O2SAT 100
== END 2023-11-01 13:50 ==
LOC: ER 09:56
DX: S00.83XA Contusion of other part of head, initial encounter (principal); I10 Essential (primary) hypertension; E03.9 Hypothyroidism, unspecified; R51.9 Headache, unspecified; Z79.1 Long term (current) use of non-steroidal anti-inflammatories (NSAID); Z79.899 Other long term (current) drug therapy; Z88.0 Allergy status to penicillin; Z88.8 Allergy status to other drugs, medicaments and biological substances; W18.39XA Other fall on same level, initial encounter; Y93.89 Activity, other specified; Y92.89 Other specified places as the place of occurrence of the external cause; Y99.8 Other external cause status
CPT/HCPCS: 36415; 70450-TC; 71045-TC; 72125-TC; 73080-TC; 73502; 73552; 73564-TC; 80048-TC; 80076-TC; 84484-TC; 85025-TC